=== PATIENT | male | born 1970 | race Caucasian/White ===

== ENCOUNTER 2017-03-06 15:46 | Emergency (ER) | payer SELFPAY ==
[2017-03-06 16:04] VITALS: BP 132/85
[2017-03-06] MEDS ORDERED: Acetaminophen/oxyCODONE 325-5 MG Tab PO ONE (16:54)
[2017-03-06] MEDS ORDERED: Amoxicillin/Clavulanate K 875-125 MG Tab PO ONE (16:54)
--- NOTE | 2017-03-06 16:59 | EDM.PDOC ---
ED HPI GENERAL MEDICAL PROBLEM - General Chief Complaint: ENT Problem Stated Complaint: SWOLLEN FACE RIGHT SIDE, CAN'T EAT Time Seen by Provider: 03/06/17 16:44 Source of Information: Reports: Patient, Family (spouse) History Limitations: Reports: No Limitations - History of Present Illness INITIAL COMMENTS - FREE TEXT/NARRATIVE: 46-year-old male presents to the ED with severe pain right side of his face he believes from a lower molar tooth. pain started 3 days ago and now is progressively constant severe throbbing pain to the point that he can eat and can't sleep. doesn't think there is any injury to the tooth. He's had no recent dental procedures carried out. feels that his right facial cheek particularly along his mandibular condyle is swollen. Onset: Gradual Onset Date: 03/04/17 Duration: Day(s): Location: Reports: Face ( right shruti-face) Quality: Reports: Ache, Pressure, Throbbing Severity: Severe (rates the pain as 9 out of 10.) Improves with: Reports: None Worsens with: Reports: Other Context: Denies: Activity ( opening his mouth wide or trying to eat cannot chew at all on that side.), Exercise, Lifting, Sick Contact, Trauma, Other Associated Symptoms: Reports: No Other Symptoms Treatments TAPE TRANSFERRER: Reports: NSAIDS ( no relief) Lower Tooth/Teeth Pain Score (Numeric/FACES): 10 - Related Data Allergies Allergy/AdvReac Type Severity Reaction Status Date / Time No Known Allergies Allergy Verified 03/06/17 16:04 Home Meds: Home Meds Amoxicillin/Potassium Clav [Augmentin 875-125 Tablet] 1 each PO BID #14 tablet 03/06/17 [Rx] oxyCODONE HCl/Acetaminophen [Percocet 5-325 mg Tablet] 1 - 2 each PO Q4H PRN # 20 tablet 03/06/17 [Rx] Past Medical History - Past Health History Medical/Surgical History: Denies Medical/Surgical History Social & Family History - Tobacco Use Smoking Status *Q: Current Every Day Smoker Years of Tobacco use: 20 Packs/Tins Daily: 1 - Living Situation & Occupation Living situation: Reports: Occupation: Employed ED ROS ENT - Review of Systems Review Of Systems: See Below Constitutional: Reports: Malaise, Weakness, Fatigue, Decreased Appetite ( from not being able to sleep). Denies: Fever, Chills HEENT: Reports: Dental Pain ( severe dental pain right lower) Respiratory: Reports: No Symptoms Cardiovascular: Reports: No Symptoms ( molar tooth.) Endocrine: Reports: No Symptoms GI/Abdominal: Reports: No Symptoms : Reports: No Symptoms ED EXAM, ENT - Physical Exam Exam: See Below Exam Limited By: No Limitations General Appearance: Alert, Moderate Distress ( he appears to be in moderate amount of pain.) Ears: Normal TMs Mouth/Throat: Dental Pain ( dental pain appears to be originating from a third molar that is incompletely erupted on the right lower jaw. I can see about 80% of the crown of the tooth. The tissue posterior to the third molar is markedly swollen erythematous and edematous. No obvious purulent material or drainage is evident. I think most of his pain is actually from a non-erupted third molar tooth.) Head: Atraumatic, Normocephalic Neck: Lymphadenopathy (R) ( does have tender) Respiratory/Chest: No Respiratory Distress, Lungs Clear, Normal Breath Sounds, No Accessory Muscle Use ( this of the right submandibular node.) Course - Vital Signs Last Recorded V/S: Last Vital Signs Temp 35.8 C 03/06/17 16:00 Pulse 85 03/06/17 16:00 Resp 18 03/06/17 16:00 BP 132/85 03/06/17 16:00 Pulse Ox 98 03/06/17 16:00 - Orders/Labs/Meds Meds: Medications Discontinued Medications Generic Name Dose Route Start Last Admin Trade Name Freq PRN Reason Stop Dose Admin Amoxicillin/Clavulanate Potassium 1 tab 03/06/17 16:54 Augmentin 875 Mg/125 Mg PO 03/06/17 16:55 ONETIME ONE Oxycodone/Acetaminophen 2 tab 03/06/17 16:54 Percocet 325-5 Mg PO 03/06/17 16:55 ONETIME ONE - Radiology Interpretation Free Text/Narrative:: 46-year-old male with severe dental pain originating from her right third molar tooth that is not completely erupted yet. Proximal 80% of the tooth is visible. the tissue posterior to the third molar is markedly swollen and erythematous and appears to be infected. There is also swelling in pain localized to the submandibular no suggesting an infective process. He is facial cheek is also swollen and warm to palpation. he will be treated with Augmentin 875 mg twice daily for the next 7 days with the first tablet provided in the ED today since the drug stores or closed. He will continue Aleve 2 tablets every 8 hours to reduce pain and inflammation. Per/ tablets 5/3/25 milligrams strength one milligrams 1-2 tablets every 4-6 hours for pain not controlled by Aleve alone. needs to follow-up with dentist to have panoramic view to see whether or not this tooth is going to be able to eat dropped completely on its own or it is pushing against his second molar and needs to be removed. he would have to see oral surgeon for this. the remainder of his teeth appear to be in good condition. Departure - Departure Time of Disposition: 16:55 Disposition: Home, Self-Care 01 Condition: Fair Clinical Impression: Dental implant pain Qualifiers: Encounter type: initial encounter Qualified Code(s): T85.848A - Pain due to other internal prosthetic devices, implants and grafts, initial encounter - Discharge Information Prescriptions: Amoxicillin/Potassium Clav [Augmentin 875-125 Tablet] 1 each PO BID #14 tablet oxyCODONE HCl/Acetaminophen [Percocet 5-325 mg Tablet] 1 - 2 each PO Q4H PRN # 20 tablet PRN Reason: pain relief. Instructions: Dental Caries, [id number] Referrals: PCP,None [Primary Care Provider] - Forms: ED Department Discharge Additional Instructions: Evaluation in the emergency him today in regards to severe dental pain arising from a right lower third molar the does not appear to be fully erupted. It appears to have caused infection in the soft tissues posterior her behind the right third molar tooth and involving the facial cheek. this area is very reddened and swollen. the third molar tooth does not appear to be fully erupted perhaps about 80% of the tooth is visible. follow-up with dentist advised with panoramic views to see whether this tooth will need to be extracted as it may continue to cause reccurrent problems. in the meantime treatment is to continue Aleve 2 tablets every 8 hours for pain and inflammation. Percocet 5/325 milligram tablets one or 2 every 4-6 hours for pain not relieved by Aleve alone. Of note she cannot operate a motor vehicle or equipment when you're taking the stronger pain medications. antibiotic is to be Augmentin 500 mg 1 tablet twice daily for the next 7 days to clear up infection. First tablet was provided in the ED this afternoon and you will not need a Leonela tablet until tomorrow morning.
== END 2017-03-06 17:20 | disposition home or self-care (01) ==
LOC: EDSEX 15:46 → JD.ED 15:46
DX: T85.848A Pain due to other internal prosthetic devices, implants and grafts, initial encounter (principal); F17.210 Nicotine dependence, cigarettes, uncomplicated
CPT/HCPCS: 99283; A9270